=== PATIENT | female | born 1980 | race Caucasian/White ===

== ENCOUNTER → 2024-03-08 14:40 | Outpatient (REF) | payer OTHER, SELFPAY | LOC: RCS 14:40 | PROVIDERS: ATTENDING PHYSICIAN Internal Medicine | DX: Z00.8 Encounter for other general examination (principal); R00.2 Palpitations | CPT/HCPCS: 93306 ==

== ENCOUNTER → 2024-03-10 09:19 | Outpatient (REF) | payer OTHER, SELFPAY | LOC: RCS 09:19 | PROVIDERS: ATTENDING PHYSICIAN Internal Medicine | DX: I49.3 Ventricular premature depolarization (principal); R00.2 Palpitations | CPT/HCPCS: 93225; 93226 ==

== ENCOUNTER → 2024-04-08 12:38 | Outpatient (REF) | payer OTHER, SELFPAY | LOC: RAD 12:38 | PROVIDERS: ATTENDING PHYSICIAN Internal Medicine | DX: R07.81 Pleurodynia (principal); R05.1 Acute cough | CPT/HCPCS: 71101 ==

== ENCOUNTER → 2024-08-01 08:22 | Outpatient (REF) | payer OTHER, SELFPAY | LOC: RCS 08:22 | PROVIDERS: ATTENDING PHYSICIAN Student in an Organized Health Care Education/Training Program | DX: Z01.818 Encounter for other preprocedural examination (principal) | CPT/HCPCS: 93005 ==

== ENCOUNTER → 2024-08-02 07:50 | Outpatient (REF) | payer OTHER, SELFPAY | LOC: RSP 07:50 | PROVIDERS: ATTENDING PHYSICIAN Internal Medicine | DX: J45.30 Mild persistent asthma, uncomplicated (principal) | CPT/HCPCS: 94727; 94729; 88738; 94010 ==

== ENCOUNTER 2024-08-08 06:27 | Day surgery (SDC) | payer OTHER, SELFPAY ==
[2024-08-08] VITALS (9 sets, daily range): BP systolic 110–147; BP diastolic 57–84; BMI 26.7
--- NOTE | 2024-08-08 07:18 | HP.FOC2 ---
Focused History & Physical
Chief Complaint
HPI:
Chief Complaint: Ventral and umbilical hernias
HPI / Indication for Planned Procedure: Patient is a 44-year-old female previously seen in outpatient surgical evaluation secondary to history of visible swelling/protrusion present on her central abdomen just above the umbilicus. Noticeable on a
daily basis, variable in size. Awareness of the hernia being present. No significant pain or symptom suggestive of intermittent incarceration or obstruction.
Relevant Past Medical History: Other (High cholesterol, history of shingles, asthma)
Relevant Social History: Negative
Relevant Family History: Negative
Relevant Past Surgical History: Positive for ( x 2)
Review of Systems
Review of Pertinent Systems: All Systems Negative
Medication
See Medication form for detailed medications: Yes
Medication List (including Herbals & OTC):
acetaminophen 500 mg capsule 500 - 1,000 mg PO Q6H PRN pain 07/28/24
albuterol sulfate 90 mcg/actuation aerosol inhaler 1 puff inhalation Q6H PRN SOB 07/28/24
cholecalciferol (vitamin D3) 50 mcg (2,000 unit) tablet (Vitamin D3) 50 mcg PO DAILY 07/28/24
fluticasone fur. 200 mcg-umeclid 62.5 mcg-vilant 25 mcg inhalat.powder (Trelegy Ellipta) 1 inh inhalation HS 07/28/24
ibuprofen 200 mg tablet (Advil) 400 - 600 mg PO Q6H PRN pain 07/28/24
metoprolol succinate 25 mg tablet,extended release 24 hr 25 mg PO HS 07/28/24
naproxen sodium 220 mg tablet (Aleve) 220 mg PO PRN PRN pain 07/28/24
norethindrone 1 mg-ethinyl estradiol 10 mcg (24)-iron 10 mcg(2) tablet (Lo Loestrin Fe) 1 tab PO HS 07/28/24
pediatric multivitamin no.76 (Flintstones Complete chewable tablet) 1 tab PO DAILY 07/28/24
sertraline 100 mg tablet 300 mg PO HS 07/28/24
Medications Reviewed: Yes
Allergies and Reactions
Patient has Allergies: No
Noted Allergies and Reactions:
Allergy/AdvReac Type Severity Reaction Status Date / Time
No Known Drug Allergies Allergy Unknown Verified 07/28/24 10:32
Pertinent Physical Exam
All Other Systems: Negative
Head/Neck: Normal
Lungs: Normal
Heart: Normal
Abdomen: Other (Soft, partially reducible supraumbilical ventral hernia, separate fascial defect at the umbilicus as well)
Extremities: Normal
Neurological: Normal
Diagnosis / Assessment
44-year-old female presenting for scheduled operative correction symptomatic ventral/umbilical hernias
Plan / Procedure
Robotic assisted laparoscopic repair umbilical/ventral hernia with mesh
Anesthesia/Sedation to be done by Anesthesia Provider: Yes
[2024-08-08] MEDS: TYLENOL 1000 MG PO (09:18)
[2024-08-08] MEDS: NORMOSOL-R/PLASMALYTE-A 1000 IV (09:18)
[2024-08-08] MEDS: TRANSDERM-SCOP 1 PATCH TRANSDERM (09:42)
--- NOTE | 2024-08-08 10:01 | W.SUR.PREOP ---
Pre-Operative Surgical Note
-
I have examined this patient prior to the performance of the scheduled procedure.
The patient's condition is unchanged from the time of the current History and
Physical and the patient is able to undergo the scheduled procedure.
--- NOTE | 2024-08-08 12:08 | W.IMMPOSTOP ---
Addendum entered and electronically signed by Kodak Betts MD 08/08/24 12:51:
#[id number]
Original Note:
Surgical Immed Post Op Note
-
Primary Surgeon: Alpesh
Assisting Surgeon: Garima Sadler PA-c
Pre-op Diagnosis: Umbilical hernia/ventral hernia
Post-op Diagnosis: Umbilical hernia/ventral hernia -4 cm in combined total length
Procedure Performed: RAL SANTI umbilical hernia/ventral hernia repair with mesh; Bard soft mesh 12 cm x 7 cm
Anesthesia Type: GETA +30 mL 0.25% Marcaine with epi/20 mL NSS
Specimen / Cultures: None
Estimated Blood Loss: 6 mL
Complications: None immediate
Operative Findings: Supraumbilical ventral hernia 2 cm; umbilical hernia 1 cm -including fascial bridge total hernia length 4 cm vertically. Each defect individually closed with running continuous 0 PDS STRATAFIX symmetric suture. Underlay
preperitoneal mesh repair, Bard soft mesh 12 cm x 7 cm oriented vertically. Mesh secured to linea alba and posterior sheath with interrupted 2-0 Vicryl suture. Peritoneal flap closed with 2-0 Monocryl STRATAFIX spiral.
== END 2024-08-08 14:33 | disposition home or self-care (01) ==
LOC: SDS 06:27
PROVIDERS: ATTENDING PHYSICIAN Surgery
DX: K43.9 Ventral hernia without obstruction or gangrene (principal); K42.9 Umbilical hernia without obstruction or gangrene
CPT/HCPCS: 49593; C1781

== ENCOUNTER → 2024-09-26 10:25 | Outpatient (REF) | payer OTHER, SELFPAY | LOC: RAD 10:25 | PROVIDERS: ATTENDING PHYSICIAN Internal Medicine Critical Care Medicine; FAMILY PHYSICIAN Internal Medicine | DX: R05.3 Chronic cough (principal); R07.9 Chest pain, unspecified | CPT/HCPCS: 71046 ==

== ENCOUNTER 2024-09-28 12:11 | Emergency (ER) | payer OTHER, SELFPAY ==
[2024-09-28 12:14] VITALS: BP 135/76
[2024-09-28 12:43] LABS: % Basophils 0.4 % (0-2); % Eosinophils 2.8 % (0-6); % Immature Granulocytes 0.3 % (0-0.5); % Lymphocytes 26.4 % (20.5-51.1); % Monocytes 8.2 % (1.7-9.3); % Neutrophils 61.9 % (42.2-75.2); Absolute Eosinophils 0.3 10^3/uL (0-0.7); Absolute Lymphocytes 2.5 10^3/uL (1.2-3.4); Absolute Monocytes 0.8 10^3/uL (0.1-0.6); Absolute Neutrophils 5.9 10^3/uL (1.4-6.5); Hematocrit 41.2 % (37.0-47.0); Hemoglobin 13.8 g/dL (12.0-16.0); Mean Corp Hgb Conc. 33.5 g/dL (33.0-37.0); Mean Corpuscular Hgb 30.7 pg (27.0-31.0); Mean Corpuscular Volume 91.6 fL (81.0-99.0); Mean Platelet Volume 9.9 fL (7.4-10.4); Nucleated Red Blood Cells % 0 %; Platelet Count 248 10^3/uL (130-400); Red Cell Dist. Width 12.7 % (11.5-14.5); White Blood Cell Count 9.6 10^3/uL (4.8-10.8)
[2024-09-28 12:56] LABS: ALT (SGPT) 17 U/L (0-35); AST (SGOT) 20 U/L (14-36); Albumin 4.4 g/dl (3.5-5.0); Alkaline Phosphatase 95 U/L (38-126); Blood Urea Nitrogen 12 mg/dl (7-17); Calcium 9.4 mg/dl (8.4-10.2); Carbon Dioxide 25 mmol/L (22-30); Chloride 108 mmol/L (98-107); Glucose 93 mg/dl (70-99); Sodium 140 mmol/L (135-145); Total Bilirubin 0.5 mg/dl (0.2-1.3); Total Protein 7.2 g/dl (6.3-8.2); eGFR > 60.00
[2024-09-28 13:06] LABS: Troponin I < 0.012 ng/ml
--- NOTE | 2024-09-28 15:23 | ED.GENMED ---
History of Present Illness
General
Chief Complaint: Abnormal Lab Value
Time Seen by Provider: 09/28/24 15:08
History of Present Illness
History of Present Illness:
Patient presents to the emergency department with elevated D-dimer. She has had a cough for 6 months, pleuritic chest pain that has been going from both sides of her chest. She saw a coloring room man who sent a ddimer and found it to be elevated.
She was sent in for CT to rule out pulmonary embolism. denies any shortness of breath. Denies any leg swelling. Denies any history of DVT or blood clots
Phy Exam
Physical Exam
Physical Exam:
GENERAL APPEARANCE: NAD, well developed/ well nourished
EYES lids/conjunctiva normal
EARS/NOSE/THROAT Mucous membranes moist, uvula midline without oral pharyngeal erythema, exudate or swelling
HEAD/NECK normocephalic atraumatic, neck is supple.
RESPIRATORY respiratory effort normal, speaks in full sentences, no accessory muscle use. Lungs clear to auscultation without rhonchi, wheezes, rales
CARDIAC Regular rate and rhythm, no edema.
ABDOMINAL Soft, ND/NT. No pulsatile masses on exam, rebound tenderness, Breen sign or pain over Mcburney's point.
MUSCLES/EXTREMITIES No abnormal range of motion, no swelling.
SKIN Warm, pink and dry. No rashes
NEUROLOGICAL Speech is clear and appropriate. Normal level of consciousness. 5/5 strength in all extremities.
PSYCH Normal mood and affect. Judgement/competence is appropriate
Course
Orders/Labs/Results
Orders:
Orders
09/28/24 12:22
Electrocardiogram (*1) Urgent
Reason for Study: Chest Pain
EKG- Treatment ONCE
09/28/24 12:30
Complete Blood Count/With Diff Urgent
Comprehensive Metabolic Panel Urgent
Troponin I Urgent
09/28/24 12:32
CT Chest PE Study Urgent
Comment:
Reason For Exam: elevated d-dimer
Abnormal Lab Results
09/28/24
12:30
Absolute Monos (auto) 0.8 H 10^3/uL
(0.1-0.6)
Chloride 108 H mmol/L
(98-107)
09/28/24 12:30
09/28/24 12:30
Vital Signs
Initial and Last Documented VS:
Initial Vital Signs
Temp Pulse Resp BP Pulse Ox
98.6 F 96 16 135/76 98
09/28/24 12:14 09/28/24 12:14 09/28/24 12:14 09/28/24 12:14 09/28/24 12:14
Last Documented Vital Signs
Temp Pulse Resp BP Pulse Ox
98.6 F 96 18 135/76 98
09/28/24 12:14 09/28/24 12:14 09/28/24 15:13 09/28/24 12:14 09/28/24 12:14
*Critical Care Note
Total Time (30-74mins, 75-104mins- exclusive of procedures): Not Applicable
ED Attending Note
ED Attending Note
ED Attending Note:
CT scan negative for PE
patient well appearing, no resp distress
ekg, trop negative
suspectpleurisy in the setting of ongoing cough of unclear etiology
discussed possible GERD as a cause, recommended starting pepcid
recommended naproxen x1 week with food for pleurisy
-
Portions of this chart may have been created with voice recognition software.� Occasional wrong word or��sound alike� substitutions may have occurred due to the inherent limitations of voice recognition software.
Discharge Plan
Departure
Patient Disposition: Home (Routine Discharge)
Date of Disposition: 09/28/24
Time of Disposition: 15:25
Patient with high blood pressure during this ER visit?: No
Discharge Problem:
Pleurisy
Instructions: Pleuritic Chest Pain ED
Prescriptions:
No Action
sertraline 100 mg Tablet
300 mg PO HS
metoprolol succinate 25 mg Tablet Extended Release 24 Hr
25 mg PO HS
albuterol sulfate 90 mcg/actuation Hfa Aerosol Inhaler
1 puff INHALATION Q6H PRN (Reason: SOB)
Lo Loestrin Fe 1 mg-10 mcg (24)/10 mcg (2) Tablet
1 tab PO HS
Trelegy Ellipta 200-62.5-25 mcg Blister With Device
1 inh INHALATION HS
cholecalciferol (vitamin D3) [Vitamin D3] 50 mcg (2,000 unit) Tablet
50 mcg PO DAILY
Flintstones Complete Tablet,Chewable
1 tab PO DAILY
naproxen sodium [Aleve] 220 mg Tablet
220 mg PO PRN PRN (Reason: pain)
ibuprofen [Advil] 200 mg Tablet
400 - 600 mg PO Q6H PRN (Reason: pain)
acetaminophen 500 mg Capsule
500 - 1,000 mg PO Q6H PRN (Reason: pain)
polyethylene glycol 3350 [Miralax] 17 gram/dose powder
4 g PO DAILY PRN (Reason: Constipation) Qty: 119 0RF
Rx Instructions:
start a laxative such as MIRALAX on day 2 after surgery if no bowel movement yet as long as no nausea/vomiting and passing gas
ondansetron 4 mg tablet,disintegrating
4 mg PO Q8HPRN PRN (Reason: nausea/vomiting) Qty: 10 0RF
oxycodone 5 mg tablet
5 mg PO Q4HPRN PRN (Reason: breakthrough/severe pain) Qty: 7 0RF
Referrals:
Laci Shin MD [Family Provider] -
Activity Restrictions/Additional Instructions:
please take naproxen twice daily for 1 week with food
please try pepcid before bed as GERD (acid reflux) can cause chronic cough
follow up with your coloring room man for continued close outpatient work up
Interventions
Interventions:
*Risk Screen - Suicide Last Done: 09/28/24 12:14
*General Assessment Last Done: 09/28/24 12:14
ED- Fall Risk Assessment Last Done: 09/28/24 15:11
*ED COVID-19 Vaccine History Last Done: 09/28/24 12:14
Discharge Date and Time
Print Language: FRISIAN
[2024-09-28 15:40] VITALS: BP 129/78
== END 2024-09-28 15:41 | disposition home or self-care (01) ==
LOC: EMR 12:11
PROVIDERS: Emergency Medicine; EMERGENCY PHYSICIAN Emergency Medicine; FAMILY PHYSICIAN Internal Medicine Critical Care Medicine
DX: R09.1 Pleurisy (principal); R05.9 Cough, unspecified
CPT/HCPCS: 99284; 71275; 80053; 84484; 85025; 93005; Q9967

== ENCOUNTER → 2024-09-30 07:32 | Outpatient (REF) | payer OTHER, SELFPAY | LOC: RAD 07:32 | PROVIDERS: ATTENDING PHYSICIAN Internal Medicine Critical Care Medicine | DX: R79.89 Other specified abnormal findings of blood chemistry (principal) | CPT/HCPCS: 93970 ==

== ENCOUNTER → 2024-10-27 08:35 | Outpatient (REF) | payer OTHER, SELFPAY | LOC: WDC 08:35 | PROVIDERS: ATTENDING PHYSICIAN Obstetrics & Gynecology; FAMILY PHYSICIAN Internal Medicine | DX: Z12.31 Encounter for screening mammogram for malignant neoplasm of breast (principal) | CPT/HCPCS: 77063; 77067 ==

== ENCOUNTER → 2025-03-14 14:27 | Outpatient (REF) | payer OTHER, SELFPAY | LOC: HWRAD 14:27 | PROVIDERS: ATTENDING PHYSICIAN Internal Medicine | DX: N28.1 Cyst of kidney, acquired (principal) | CPT/HCPCS: 76775 ==

== ENCOUNTER → 2025-07-04 07:14 | Outpatient (REF) | payer OTHER, SELFPAY | LOC: HWRAD 07:14 | PROVIDERS: ATTENDING PHYSICIAN Internal Medicine; FAMILY PHYSICIAN Internal Medicine | DX: R16.1 Splenomegaly, not elsewhere classified (principal) | CPT/HCPCS: 76700 ==